=== PATIENT | female | born 1975 | race Caucasian/White ===

== ENCOUNTER 2018-12-27 09:25 | Observation (INO) | payer OTHER ==
--- NOTE | 2018-12-27 09:34 | EDPHY ---
H & P Time Seen by Provider: 12/27/18 09:34 HPI/ROS: CHIEF COMPLAINT: Right-sided abdominal pain HISTORY OF PRESENT ILLNESS: This is a 43-year-old female P 1 G3 status post section and partial hysterectomy who presents with right lower quadrant abdominal pain. She developed abdominal pain yesterday, took an ibuprofen, and did not think much about it. However, last night the pain worsened significantly. At that time it was diffuse and has now localized to the right lower quadrant. She has no appetite and has not had anything to eat or drink since 6:00 p.m. yesterday. She has not had nausea or vomiting. She had one diarrheal stool yesterday, nonbloody. No bowel movement since. No history of constipation. No urinary symptoms or back pain. REVIEW OF SYSTEMS: A ten system review of systems was performed and is negative with the exception of the items mentioned in the HPI. Past medical history: Negative Past surgical history: section/partial hysterectomy Family history: Positive for clotting disorder on the paternal side and ovarian cancer on the maternal side. Social history: She works for [employer] She has triplets, 10 years old. she lives with her and children. No tobacco, social alcohol (2 glasses of wine/ week). General Appearance: Alert. Vital signs reviewed. Blood pressure 141/87. Afebrile. Eyes: Pupils equal and round, no conjunctival injection, no discharge. Anicteric. ENT, Mouth: Mucous membranes are moist. Neck: No lymphadenopathy, supple. Respiratory: Lungs are clear to auscultation; no wheezes, rales, or rhonchi. Cardiovascular: Regular rate and rhythm; no murmur, rub, or gallop. Gastrointestinal: Abdomen is soft with right lower quadrant tenderness and guarding, positive rebound tenderness, no masses or organomegaly, bowel sounds present. Skin: Warm and dry, no rashes on exposed skin, normal color. Back: Nontender to palpation over the thoracolumbar spine. No CVAT. Extremities: No lower extremity edema, no calf tenderness or swelling. Neurological: Alert and oriented. Moving all four extremities easily and equally. Psychiatric: Normal affect. Constitutional: Initial Vital Signs Temperature (C) 37.1 C 12/27/18 09:35 Heart Rate 92 12/27/18 09:35 Respiratory Rate 14 12/27/18 09:35 Blood Pressure 141/87 H 12/27/18 09:35 O2 Sat (%) 95 12/27/18 09:35 O2 Delivery Mode Room Air Allergies/Adverse Reactions: No Known Allergies Allergy (Verified 12/27/18 09:33) Home Medications: Medication Instructions Recorded Cetirizine [ZyrTEC 10 mg (*)] 10 mg PO DAILY PRN 12/27/18 Cyanocobalamin [Vitamin B12 (*)] 1,000 mcg PO DAILY 12/27/18 Etonogestrel/Ethinyl Estradiol 1 ea VG ONCE 12/27/18 [Nuvaring Vaginal Ring] Herbals/Supplements -Info Only 1 ea PO DAILY 12/27/18 Medical Decision Making - Diagnostics Imaging Results: Imaging Impressions Abdomen CT 12/27/18 09:51 Impression: 1. Findings compatible with appendicitis. 2. Incidental 1 to 2 mm nonobstructive calculus mid right kidney. Findings discussed with Justine Duggan M.D. at 11:01 hour, 12/27/2018. ED Course/Re-evaluation: 43-year-old female with signs and symptoms of appendicitis. She tells a classic story. My #1 suspicion is for appendicitis. CBC shows a normal white blood cell count. Urinalysis is negative for signs of infection and there is no hematuria. I think a kidney stone is unlikely. She is not , this is not an ectopic . She has a history of previous abdominal surgery but nothing to suggest a bowel obstruction. Initially she opted to forego any pain medication. CT scan of the abdomen and pelvis was performed and is positive for appendicitis, no abscess. I reviewed the CT scan and I have spoken with the radiologist. Surgeon enterprise integration developer paged at 11 :00 a.m.. Patient understands that she will need surgery. Her can transport her from [facility] to [facility]. IV fluids started. She is given Dilaudid 0.5 mg IV for pain control. I spoke with Dr. Javid Andrade who has accepted the patient for surgery and admission. She is NPO with IV fluids (normal saline) running. She will be transferred by private car (her is driving) to the emergency department at [facility]. I have spoken with Dr. Wilton Kenny , attending physician in the emergency department. A med surg bed has been requested. Patient has been serially examined while in the emergency department at [facility]. Her abdomen remains tender in the right lower quadrant. Vital signs have been stable. Differential Diagnosis: Abdominal pain including but not limited to appendicitis, ovarian cyst, ectopic , ureterolithiasis, bowel obstruction, and urinary tract infection. - Data Points Laboratory Results: 12/27/18 10:21 POC Hgb 15.3 gm/dL gm/dL (12.6-16.3) POC Hct 45 % % (38-47) POC Sodium 141 mEq/L mEq/L (135-145) POC Potassium 3.8 mEq/L mEq/L (3.3-5.0) POC Chloride 106 mEq/L mEq/L (97-110) POC Total CO2 25 mEq/L mEq/L (22-31) POC BUN 10 mg/dL mg/dL (7-23) POC Creatinine 0.9 mg/dL mg/dL (0.6-1.0) POC Glucose 94 mg/dL mg/dL (70-100) Medications Given: Discontinued Medications Hydromorphone HCl (Dilaudid) 0.5 mg IVP EDNOW ONE Stop: 12/27/18 11:07 Last Admin: 12/27/18 11:11 Dose: 0.5 mg Sodium Chloride (Ns) 1,000 mls @ 0 mls/hr IV EDNOW ONE; Wide Open PRN Reason: Protocol Stop: 12/27/18 10:59 Last Admin: 12/27/18 11:10 Dose: 1,000 mls Point of Care Test Results: CBC CBC Collection Date 12/27/18 CBC Collection Time 10:05 WBC 8.13 RBC 4.63 HGB 14.8 HCT 43.7 PLT 257 Neut # 5.65 Neut 69.5 LYMPH # 1.67 LYMPH 20.5 MCV 94.4 Chemistry 12/27/18 10:21 POC Sodium 141 mEq/L mEq/L (135-145) POC Potassium 3.8 mEq/L mEq/L (3.3-5.0) POC Chloride 106 mEq/L mEq/L (97-110) POC Total CO2 25 mEq/L mEq/L (22-31) POC BUN 10 mg/dL mg/dL (7-23) POC Creatinine 0.9 mg/dL mg/dL (0.6-1.0) POC Glucose 94 mg/dL mg/dL (70-100) ISTAT H&H 12/27/18 10:21 POC Hgb 15.3 gm/dL gm/dL (12.6-16.3) POC Hct 45 % % (38-47) Urine Collection Date 12/27/18 Collection Time 09:50 HCG Results Negative Urine Dip Collection Date 12/27/18 Collection Time 09:50 Specific [place] (1.002-1.030) 1.010 PH (5.0-7.5) 6.5 Leukocytes (Negative) Trace Nitrites (Negative) Negative Protein (Negative) Negative Glucose (Negative) Negative Ketones (Negative) Negative Urobilnogen (0.2-1.0 EU) 0.2 Bilirubin (Negative) Negative Blood (Negative) Negative Departure - Departure Disposition: [facility] Clinical Impression: Acute appendicitis Qualifiers: Acute appendicitis type: with localized peritonitis Appendicitis gangrene presence: without gangrene Appendicitis perforation presence: without perforation Appendicitis abscess presence: without abscess Qualified Code(s): K35.30 - Acute appendicitis with localized peritonitis, without perforation or gangrene Condition: Good
[2018-12-27] MEDS ORDERED: IOPAMIDOL (ISOVUE-300) 100 ML BTL ONE (10:03)
[2018-12-27] MEDS ORDERED: NS 1,000 ML IV ONE (10:58)
[2018-12-27] MEDS ORDERED: HYDROmorphONE/DILAUDID 2 MG/ML INJ IVP ONE (11:06)
[2018-12-27] MEDS ORDERED: ONDANSETRON 4 MG/2 ML VIAL IVP PRN ×2 (14:27→17:32)
[2018-12-27] MEDS ORDERED: HYDROmorphONE/DILAUDID 1 MG/ML INJ IVP PRN (14:27)
[2018-12-27] MEDS ORDERED: CETIRIZINE 10 MG TAB PO PRN (14:28)
[2018-12-27] MEDS ORDERED: D5W 1/2 NS W/ 20 KCl/L 1,000 ML IV SCH (14:30)
[2018-12-27] MEDS ORDERED: Etonogestrel/Ethinyl Estradiol [Nuvaring Vaginal Ring] VG SCH (14:30)
--- NOTE | 2018-12-27 14:31 | SOAPPROG ---
SOAP Progress Note Assessment/Plan: Assessment: 43 FEMALE WITH ACUTE APPE AND 24HRS OF PAIN IN RLQ PHX CSECTION MEDS 0 NKA RISKS AND OPTIONS FULLY DISCUSSED HEENT NONICTERIC CHEST CLEAR COR RR ABD SOFT, TENDER RLQ WITH REBOUND Plan:LAP APPE 12/27/18 14:29 Objective: Vital Signs Temp Pulse Resp BP Pulse Ox 36.6 C 71 14 113/68 97 12/27/18 12:37 12/27/18 12:37 12/27/18 12:37 12/27/18 12:37 12/27/18 12:37 12/26/18 12/27/18 12/28/18 05:59 05:59 05:59 Intake Total 1000 Balance 1000 ICD10 Worksheet Patient Problems: Problems Problem Status Onset Acute appendicitis Acute
[2018-12-27] MEDS: cefOXitin SODIUM 2 GM in NS 100 ML IV SCH ×2 (15:02→21:36)
--- NOTE | 2018-12-27 15:11 | GHP ---
[f rep st] PREOP HISTORY AND PHYSICAL DATE OF ADMISSION: 12/27/2018 Patient is a 43-year-old female who is admitted with acute appendicitis, which was demonstrated on CT scan. She has had pain for nearly 24 hours in the right lower quadrant with some nausea. No diarrh ea or significant fever. She does have some anorexia. No emesis. Admitted at this time for laparos copic appendectomy. Risks and options fully discussed, and she wishes to proceed. PAST MEDICAL HISTORY: Includes a and partial hysterectomy. Otherwise, her past history is essentially negative. ALLERGIES: None. MEDICATIONS: Include Zyrtec, vitamins, and estrogen ring. REVIEW OF SYSTEMS: Negative on a full 10-point review. SOCIAL HISTORY: Reveals she does not smoke. FAMILY HISTORY: Noncontributory. PHYSICAL EXAMINATION: GENERAL: An alert 43-year-old female, in no acute distress, afebrile. HEENT: Nonicteric, without adenopathy or oral lesions. NECK: Supple. Full range of motion. No thyromeg mathieu. CHEST: Clear and symmetric. COR: Regular rhythm without murmurs. ABDOMEN: Soft, slightly d istended. Positive bowel sounds. Tender in the right lower quadrant with some rebound. EXTREMITIES : Reveal full range of motion, full pulses. NEUROLOGIC: Physiologic. PSYCH: Alert, oriented, and cooperative. IMPRESSION: Acute appendicitis. PLAN: Laparoscopic appendectomy. Risks and options have been fully discussed, and she wishes to pro ceed with surgery. /[id number]/MODL
[2018-12-27] MEDS ORDERED: MIDAZOLAM 2 MG/2 ML VIAL IVP ONE (17:30)
[2018-12-27] MEDS ORDERED: NALOXONE HCL 0.4 MG/ML INJ IVP PRN (17:32)
[2018-12-27] MEDS ORDERED: LR 500 ML IV PRN (17:32)
[2018-12-27] MEDS ORDERED: PROMETHAZINE HCL 25 MG/ML INJ IVP PRN (17:32)
[2018-12-27] MEDS ORDERED: MEPERIDINE 25 MG/0.5 ML AMP IVP PRN (17:32)
--- NOTE | 2018-12-27 17:32 | PDANEPAE ---
ANE Past Medical History - Cardiovascular History Hx Hypertension: No Hx Arrhythmias: No Hx Chest Pain: No Hx Coronary Artery / Peripheral Vascular Disease: No Hx CHF / Valvular Disease: No Hx Palpitations: No - Pulmonary History Hx COPD: No Hx Asthma/Reactive Airway Disease: No Hx Oxygen in Use at Home: No Hx Sleep Apnea: No Sleep Apnea Screening Result - Last Documented: Negative - Endocrine History Hx Diabetes: No ANE Review of Systems Review of Systems: ANE Patient History - Allergies Allergies/Adverse Reactions: No Known Allergies Allergy (Verified 12/27/18 09:33) - Home Medications Home medications: home medication list seen and reviewed Home Medications: Cetirizine [ZyrTEC 10 mg (*)] 10 mg PO DAILY PRN 12/27/18 [Last Taken 12/26/18 21:00] Cyanocobalamin [Vitamin B12 (*)] 1,000 mcg PO DAILY 12/27/18 [Last Taken ] Etonogestrel/Ethinyl Estradiol [Nuvaring Vaginal Ring] 1 ea VG ONCE 12/27/18 [ Last Taken 12/27/18] Herbals/Supplements -Info Only 1 ea PO DAILY 12/27/18 [Last Taken 12/26/18] - NPO status NPO Status: no food or drink >8 hours NPO Since - Liquids (Date): 12/27/18 NPO Since - Liquids (Time): 06:00 NPO Since - Solids (Date): 12/26/18 NPO Since - Solids (Time): 18:30 - Anes Hx Anes Hx: post operative nausea - Smoking Hx Smoking Status: Never smoked ANE Labs/Vital Signs - Vital Signs Blood Pressure: 110/75 Heart Rate: 81 Respiratory Rate: 14 O2 Sat (%): 96 Height: 177.8 cm Weight: 79.37 kg ANE Physical Exam - Airway Neck exam: FROM Mallampati Score: Class 1 Mouth exam: normal dental/mouth exam - Pulmonary Pulmonary: no respiratory distress, no rales or rhonchi, clear to auscultation - Cardiovascular Cardiovascular: regular rate and rhythym, no murmur, rub, or gallop - ASA Status ASA Status: I, E ANE Anesthesia Plan Anesthesia Plan: general endotracheal anesthesia
[2018-12-27] MEDS ORDERED: PROPOFOL 200 MG/20 ML VIAL ONE ×3 (17:40→18:26)
[2018-12-27] MEDS ORDERED: MIDAZOLAM 2 MG/2 ML VIAL ONE (17:40)
[2018-12-27] MEDS ORDERED: fentaNYL 100 MCG/2 ML INJ ONE ×2 (17:40→18:56)
[2018-12-27] MEDS ORDERED: KETOROLAC 30 MG/1 ML SDV ONE (17:41)
[2018-12-27] MEDS ORDERED: DEXAMETHASONE 4 MG/ML VIAL ONE ×2 (17:41)
[2018-12-27] MEDS ORDERED: ONDANSETRON 4 MG/2 ML VIAL ONE ×2 (17:41)
[2018-12-27] MEDS ORDERED: LIDOCAINE 2% 2 ML INJ ONE (17:41)
[2018-12-27] MEDS ORDERED: ROCURONIUM 50 MG/5 ML VIAL ONE (17:41)
[2018-12-27] MEDS ORDERED: ceFAZolin 1 GM/5 ML SYR ONE (17:52)
[2018-12-27] MEDS ORDERED: BUPIVACAINE 0.5% 30 ML SDV ONE (17:52)
[2018-12-27] MEDS ORDERED: HEPARIN 1000 UNIT/1 ML MDV ONE (17:53)
[2018-12-27] MEDS ORDERED: GLYCOPYRROLATE 0.2 MG/1 ML VIAL ONE ×2 (18:29)
[2018-12-27] MEDS ORDERED: NEOSTIGMINE METHYLSULFATE 5 MG/5 ML SYR ONE (18:29)
--- NOTE | 2018-12-27 18:46 | POSTANESTH ---
Post Anesthetic Evaluation Cardiovascular Status: Normal, Stable, Similar to Pre-Op Cond Respiratory Status: Normal, Stable, Similar to Pre-op Cond. Level of Consciousness/Mental Status: Can Participate in Eval, Moderately Sleepy Pain Control: Adequate, Prn Tx Ordered Nausea/Vomiting Control: Adequate, Prn Tx Ordered Complications Possibly Related to Anesthesia: None Noted
[2018-12-27] MEDS: fentaNYL 100 MCG/2 ML INJ IVP PRN ×2 (18:57→19:12)
[2018-12-27] MEDS ORDERED: HYDROmorphONE/DILAUDID 2 MG/ML INJ ONE (19:21)
[2018-12-27] MEDS: HYDROmorphONE/DILAUDID 2 MG/ML INJ IVP PRN ×2 (19:29→19:45)
[2018-12-27] MEDS ORDERED: OXYCODONE/APAP 5/325 TAB PO PRN (20:33)
[2018-12-27] MEDS ORDERED: CARBAMIDE PEROXIDE 15 ML OTIC.BTL EACHEAR SCH (21:00)
[2018-12-28] MEDS: KETOROLAC 15 MG/1 ML SDV IVP SCH ×2 (00:54→06:22)
[2018-12-28] MEDS: cefOXitin SODIUM 2 GM in NS 100 ML IV SCH ×2 (04:19→08:40)
--- NOTE | 2018-12-28 04:32 | GOP ---
[f rep st] OPERATIVE REPORT DATE OF OPERATION: 12/27/2018 SURGEON: Javid Andrade MD LEAD REFINERY SUPERVISOR: There was no assistant professor of religion. ANESTHESIOLOGIST: Dr. Connor Ortiz. PREOPERATIVE DIAGNOSIS: 1. Acute appendicitis. 2. Umbilical hernia. POSTOPERATIVE DIAGNOSIS: 1. Acute appendicitis. 2. Umbilical hernia. PROCEDURE PERFORMED: 1. Laparoscopic appendectomy. 2. Open umbilical hernia repair. FINDINGS: The patient was found to have an inflamed appendix stuck to the terminal ileal mesentery, was not perforated but was markedly inflamed. She had some scar tissue and chronic inflammation in [facility] pelvis as well, from previous surgery. A 1.5 cm umbilical hernia detected. ESTIMATED BLOOD LOSS: Blood loss was negligible. DESCRIPTION OF PROCEDURE: The patient was taken to the operating room where she received satisfactor y general endotracheal anesthesia by Dr. Ortiz. Placed in supine position, prepped and draped in the usual sterile fashion. An infraumbilical incision was made and dissection was carried down to the f ascia. The umbilical hernia sac was dissected free from surrounding subcutaneous tissue and off the back of the umbilical skin. A Veress needle was inserted through the defect and a pneumoperitoneum w as established. Trocar was introduced. Good visualization was obtained. Two other trocars placed i n the lower abdomen under direct vision. The right colon was mobilized. The appendix was identified , it was markedly thickened and affixed to the ileal mesentery. Using the Harmonic Scalpel it was di ssected off the mesentery and the base of the appendix was skeletonized. It was then divided with th e Endo-MEENU stapler, placed in a specimen bag and extracted through the upper midline port site. Hemo stasis was assured. Trocars removed under direct vision. Pneumoperitoneum was released. The umbili flower defect was freshened up. The sac was excised and the defect was closed with 2-0 PDS [id number] ght sutures. The wound was infiltrated with Marcaine, subcu was closed with 4-0 Monocryl as was the skin and the other trocar sites were closed with 4-0 Monocryl subcuticular sutures. All w ounds were infiltrated with Marcaine. She tolerated the procedure well and was taken to [facility] recovery room in good condition. There were no complications. /[id number]/MODL
[2018-12-28 07:21] VITALS: BP 116/75
--- NOTE | 2018-12-28 08:43 | SOAPPROG ---
SOAP Progress Note Assessment/Plan: Assessment/Plan: 43 Y F s/p lap appy for nonperforated but acutely inflamed appendicitis and open umbilical hernia repair. POD#1. Pain controlled c toradol. Ambulating well. Tolerating diet. D/c to home with outpatient f/u. S: feeling good. some soreness near the umbilicus. O: alert, nad no wob rrr abd soft, wounds intact 12/28/18 08:42 Objective: Vital Signs Temp Pulse Resp BP Pulse Ox 36.1 C 75 12 116/75 96 12/28/18 07:18 12/28/18 07:18 12/28/18 07:18 12/28/18 07:18 12/28/18 07:18 12/27/18 12/28/18 12/29/18 05:59 05:59 05:59 Intake Total 1850 Balance 1850 ICD10 Worksheet Patient Problems: Problems Problem Status Onset Acute appendicitis Acute
--- NOTE | 2018-12-28 10:40 | ASMTDCNOTE ---
Case Management Discharge Discharge Order Complete? Answers: Yes Patient to Obtain Answers: via Family Medications Transportation Arranged Answers: Family/Friends Transport will Pick (Date 12/28/2018 12:00 AM & Time) Family Notified Answers: Yes Notes: by patient Discharge Comments Notes: Spoke with pt in the room. Pt discharging home independently with support from and is comfortable with this plan. No CM needs noted at this time. Date Signed: 12/28/2018 10:40 AM Electronically Signed By:Anu Perez
--- NOTE | 2018-12-28 10:50 | ASMTLACE ---
LACE Length of stay for Answers: Less than 1 day current admission Acuity / Level of Answers: No Care: Did the patient have an inpatient admission? # of Emergency department Answers: 1-2 visits in the last 6 months Score: 1 Date Signed: 12/28/2018 10:50 AM Electronically Signed By:Anu Perez
--- NOTE | 2018-12-28 11:01 | ASDISCHSUM ---
Discharge Information Plan Status:Home with No Needs Medically Cleared to Leave:12/28/2018 Discharge Date:12/28/2018 10:19 AM CM D/C Disposition:Home, Routine, Self-Care ADT D/C Disposition:Home, Routine, Self-Care Projected Discharge Date:12/28/2018 10:19 AM Transportation at D/C:Family Discharge Delay Reason: Follow-Up Date:12/28/2018 10:19 AM Discharge Slot: Final Diagnosis:Appendicitis Placement Information Patient Contact Information Contact Name:CINDY Relationship: Address:[address] [place] [address] City:[place] Phone: State/Zip Code:[place] [address] Email: Financial Information Financial Class:HMO and PPO Plans Primary Plan Desc:[employer] PPO POS HMO SIG ADM Primary Plan Number:[id number] Secondary Plan Desc: Secondary Plan Number: Assessment Information LACE LACE Length of stay for Answers: Less than 1 day current admission Acuity / Level of Answers: No Care: Did the patient have an inpatient admission? # of Emergency department Answers: 1-2 visits in the last 6 months Score: 1 Date Signed: 12/28/2018 10:50 AM Electronically Signed By:Anu Perez Case Management Discharge Plan Note Case Management Discharge Discharge Order Complete? Answers: Yes Patient to Obtain Answers: via Family Medications Transportation Arranged Answers: Family/Friends Transport will Pick (Date 12/28/2018 12:00 AM & Time) Family Notified Answers: Yes Notes: by patient Discharge Comments Notes: Spoke with pt in the room. Pt discharging home independently with support from and is comfortable with this plan. No CM needs noted at this time. Date Signed: 12/28/2018 10:40 AM Electronically Signed By:Anu Perez Intervention Information
== END 2018-12-28 10:19 | disposition home or self-care (01) ==
LOC: CED 09:25 → CEDHOLD 11:45 → F3E 12:27
PROVIDERS: ADMIT Surgery; ATTEND Surgery
PROC: 0DTJ4ZZ Resection of Appendix, Percutaneous Endoscopic Approach (ICD-10-PCS; principal; 2018-12-27 18:00)
PROC: 0WQF0ZZ Repair Abdominal Wall, Open Approach (ICD-10-PCS; principal; 2018-12-27 18:00)
DX: K35.30 Acute appendicitis with localized peritonitis, without perforation or gangrene (principal); K42.9 Umbilical hernia without obstruction or gangrene; N20.0 Calculus of kidney; E86.9 Volume depletion, unspecified
CPT/HCPCS: 44970; 49585; 74177; G0378; 81025-ER; 82435-PO; 82565-PO; 82947-PO; 84132-PO; 84295-PO; 84520-PO; 85014-ER; 85025-QW-ER; 96361-ER; 96374-ER; 96375-ER; 96376-ER; 99285-ER; J0694; J1100; J1170; J1885; J2250; J2405; J2704; J2710; J3010; Q9967